=== PATIENT | female | born 1965 | race Caucasian/White ===

== ENCOUNTER 2018-04-22 19:42 | Emergency (ER) | payer BC ==
[2018-04-22 19:52] VITALS: BP 129/87; PULSE 97; RESP 16; TEMP 98.3; O2SAT 100
--- NOTE | 2018-04-22 20:05 | C.PDOC ---
History Of Present Illness 52 year old female presents to the ED via EMS for evaluation of right foot and right ankle pain s/p fall sustained 30min prior to arrival. Patient reports she was walking in the snow and slipped/fell and is unable to bear weight on the right foot/ankle. Has not taken any medication for pain. Denies head injury, LOC, parasthesia, numbness, tingling, hip/back pain, and any other associated symptoms. Time Seen by Provider: 04/22/18 19:49 Chief Complaint (Nursing): Lower Extremity Problem/Injury History Per: Patient, EMS History/Exam Limitations: no limitations Onset/Duration Of Symptoms: Other (prior to arrival.) Current Symptoms Are (Timing): Still Present - Ankle/Foot Description Of Injury: Fell (slip and fall in snow) Currently Unable To: Bear Weight, Bend Or Move Past Medical History Reviewed: Historical Data, Nursing Documentation, Vital Signs Vital Signs: Last Vital Signs Temp 98.3 F 04/22/18 19:51 Pulse 97 H 04/22/18 19:51 Resp 16 04/22/18 19:51 BP 129/87 04/22/18 19:51 Pulse Ox 100 04/22/18 19:51 - Medical History PMH: Gastritis Denies: Chronic Kidney Disease Family History: States: Unknown Family Hx - Social History Hx Alcohol Use: No Hx Substance Use: No Review Of Systems Except As Marked, All Systems Reviewed And Found Negative. Constitutional: Negative for: Other (head injury. LOC.) Musculoskeletal: Positive for: Leg Pain (right ankle and foot pain.). Negative for: Back Pain, Other (hip pain.) Neurological: Negative for: Weakness, Numbness, Incoordination, Headache, Dizziness Physical Exam - Physical Exam Appears: Well, Non-toxic Skin: Normal Color, Warm, Dry Head: Atraumatic, Normacephalic Eye(s): bilateral: Normal Inspection, PERRL, EOMI Neck: Normal ROM, Supple Cardiovascular: Rhythm Regular Respiratory: Normal Breath Sounds Back: Normal Inspection, No CVA Tenderness, No Vertebral Tenderness, No Decreased ROM, No Paraspinal Tenderness Extremity: Normal ROM (of right knee and digits), Tenderness (right knee: tenderness over the proximal fibula, medial malleolus, 1st and 2nd metatarsals, and achilles.), No Calf Tenderness, Capillary Refill (less than 2 seconds. ), No Deformity, Swelling (mild swelling over the medial malleolus, medial foot. ), Other (decreased ROM of right ankle ) Pulses: Left Dorsalis Pedis: Normal, Right Dorsalis Pedis: Normal Neurological/Psych: Oriented x3, Normal Speech, Normal Cognition, Normal Cranial Nerves, Normal Motor, Normal Sensation, Normal Reflexes Gait: Unable To Assess ED Course And Treatment O2 Sat by Pulse Oximetry: 100 (RA) Pulse Ox Interpretation: Normal Medical Decision Making Medical Decision Making: Plan: -Toradol Tylenol RT Ankle X-ray RT Foot X-ray RT Tibia X-ray XR read by me and Dr. Franks as medial and posterior malleolar fractures. Patient reports decreased pain after medications. Progress/Update: 9:04pm spoke with Podiatry resident Dr. Monge regarding patient, states he will come to evaluate. 10:30pm Podiatry resident Dr. Monge evaluated patient and splinted her in right leg posterior short leg splint. Advised prescription for Perocet, crutches, elevation, and followup in Thursday 04/[address] Mckeon. [facility] provided patient with crutches and training on crutch use. Patient advised that Percocet may make her sleepy, and to not attempt to use crutches after taking pain medication. Plan of care discussed with patient, and strict instructions given regarding prescriptions, importance of follow up, and signs to return to Emergency Department, to include or any other new/worsening symptoms. Patient verbalizes understanding of discussion. Patient A&Ox3, ambulating with steady gait, stable for discharge home. Impression: Ankle Fracture Disposition Discussed With : Gadiel Monge Comment: After consult, recommends crutches, percocet for pain, and followup with Dr. Mckeon Doctor Will See Patient In The: ED Counseled Patient/Family Regarding: Studies Performed, Diagnosis, Need For Followup, Rx Given - Disposition Referrals: Evette Mckeon DPM [Staff Provider] - Podiatry Clinic [Outside] Disposition: HOME/ ROUTINE Disposition Time: 22:45 Condition: IMPROVED Additional Instructions: Daisy percocet cada 6 horas segn sea necesario para el dolor. [place], elevacin, tobillo lesionado por el hielo. Mantener la frula hasta el seguimiento. Usa muletas para caminar Seguimiento con podologa el lunes, segn las instrucciones del Dr. Monge Regrese a la alia de emergencias para cualquier sntoma nuevo / que empeora Prescriptions: oxyCODONE/Acetaminophen [Percocet 5/325 mg Tab] 1 tab PO Q6H PRN #15 tab PRN Reason: Pain, Severe (8-10) Instructions: Ankle Fracture Forms: Gen Discharge Inst Paraguayan, [employer] (Paraguayan), Work Excuse Print Language: SPA - Clinical Impression Clinical Impression: Ankle fracture, Fall due to slipping on ice or snow - PA / ARMATURE VARNISHER / Resident Statement MD/DO has reviewed & agrees with the documentation as recorded. - Scribe Statement The provider has reviewed the documentation as recorded by the Scribe (Leanne Carranza) All medical record entries made by the Scribe were at my direction and personally dictated by me. I have reviewed the chart and agree that the record accurately reflects my personal performance of the history, physical exam, medical decision making, and the department course for this patient. I have also personally directed, reviewed, and agree with the discharge instructions and disposition.
--- NOTE | 2018-04-22 23:31 | CP.PCM.CON ---
History of Present Illness - History of Present Illness History of Present Illness: Podiatry Consult Note for Dr. Mckeon 52F seen in ED complaining right ankle pain after slipping and falling in the snow earlier this afternoon. Patient describes a great deal of pain to the ankle after falling and was immediately unable to weightbear on that side. She states that the pain is still present at this time. Denies any tingling, numbness or loss of sensation to her foot at this time. She is seen with her son at time of visit, is AAO x 3. Denies any further pedal complaints at this time. Denies hitting her head with fall or LOC Review of Systems - Review of Systems All systems: reviewed and no additional remarkable complaints except Review of Systems: as per HPI Past Patient History - Past Social History Smoking Status: Never Smoked - CARDIAC Hx Cardiac Disorders: No - PULMONARY Hx Respiratory Disorders: No - NEUROLOGICAL Hx Neurological Disorder: No - HEENT Hx HEENT Problems: No - RENAL Hx Chronic Kidney Disease: No - ENDOCRINE/METABOLIC Hx Endocrine Disorders: No - HEMATOLOGICAL/ONCOLOGICAL Hx Blood Disorders: No - INTEGUMENTARY Hx Dermatological Problems: No - MUSCULOSKELETAL/RHEUMATOLOGICAL Hx Musculoskeletal Disorders: No - GASTROINTESTINAL Hx Gastritis: Yes - GENITOURINARY/GYNECOLOGICAL Hx Genitourinary Disorders: Yes - PSYCHIATRIC Hx Substance Use: No - SURGICAL HISTORY Hx Surgeries: Yes Other/Comment: RIGHT BREAST SURGERY. PT HAD SURGERY FOR UTERINE BLEEDING - ANESTHESIA Hx Anesthesia: Yes Hx Anesthesia Reactions: No Meds Home Medications: Home Medication List Medication Instructions Recorded Confirmed Type oxyCODONE/Acetaminophen [Percocet 1 tab PO Q6H PRN #15 tab 04/22/18 Rx 5/325 mg Tab] Allergies/Adverse Reactions: Allergies Allergy/AdvReac Type Severity Reaction Status Date / Time No Known Allergies Allergy Verified 04/22/18 19:47 Physical Exam - Constitutional Appears: Well, Non-toxic, No Acute Distress - Extremities Exam Additional comments: RLE focused exam: Vasc: DP/PT pulses fully palpable 2/4 b/l. Skin temperature warm to warm from proximal to distal WNL. CFT < 3 seconds to all digits b/l. Moderate, non-pitting edema noted to anterior, medial and lateral ankle Neuro: Epicritic and protective sensation grossly intact Derm: No open lesions, wounds, maceration, xerosis, abnormal pigmentation or abnormal growths noted MSK: POP to anterior, medial and lateral ankle. Unable to assess ROM or MMT secondary to guarding - Neurological Exam Neurological exam: Alert, Oriented x3 - Psychiatric Exam Psychiatric exam: Normal Affect, Normal Mood Results - Vital Signs Recent Vital Signs: Last Vital Signs Temp 98.3 F 04/22/18 19:51 Pulse 97 H 04/22/18 19:51 Resp 16 04/22/18 19:51 BP 129/87 04/22/18 19:51 Pulse Ox 100 04/22/18 21:19 Assessment & Plan - Assessment and Plan (Free Text) Assessment: 52F seen in ED for nondisplaced medial malleolar fracture and nondisplaced posterior malleolar fracture Plan: Patient seen and evaluated Plan discussed with Dr. Mckeon Xrays reviewed: Nondisplaced medial malleolar and posterior malleolar fractures appreciated. No lateral malleoloar or proximal fibular fractures appreciated Posterior splint applied Patient instructed to remain NWB, practice RICE therapy Rx Percocet given and patient instructed to take Tylenol, only use Percocet for breakthrough pain Patient given crutches and note to miss work Patient to follow up with Dr. Mckeon in clinic on Thursday - Date & Time Date: 04/22/18 Time: 23:33
--- NOTE | 2018-04-23 10:07 | RAD ---
PROCEDURE: Right foot radiographs Right ankle radiographs Right tibia fibula radiographs HISTORY: r/o fracture COMPARISON: None available. FINDINGS: BONES: Acute minimally displaced fracture of the medial malleolus and likely posterior malleolus. Evidence of intra-articular extension. Small calcaneal enthesophyte/heel spur. JOINTS: No dislocation. SOFT TISSUES: Soft tissue swelling. No evidence of radiopaque foreign body. OTHER FINDINGS: None. IMPRESSION: Minimally displaced acute fractures involving the medial and posterior malleoli. Evidence of intra-articular extension. Associated soft tissue swelling. Findings discussed with JUSTO Wetzel on 04/23/18 at 10:02 a.m.. Study marked for PA review.
== END 2018-04-22 23:26 | disposition home or self-care (01) ==
LOC: C.ER 19:42
DX: S82.54XA Nondisplaced fracture of medial malleolus of right tibia, initial encounter for closed fracture (principal); W00.0XXA Fall on same level due to ice and snow, initial encounter; Y93.01 Activity, walking, marching and hiking